=== PATIENT | female | born 1970 | race Two or more races ===

== ENCOUNTER 2025-05-18 17:57 | Inpatient (IN) | payer SELFPAY ==
[~2025-05-18] VITALS: Ht 147.3 cm; Wt 58.5 kg
[2025-05-18 17:59] VITALS: O2SAT 99
[2025-05-18 19:12] LABS: BASOPHILS % 0.7 % (0.0-2.0); EOSINOPHILS % 1.4 % (0.0-5.0); HEMATOCRIT. 41.5 % (36.0-48.0); HEMOGLOBIN. 14.1 g/dL (12.0-16.0); LYMPHOCYTES % 29.7 % (20.0-50.0); MEAN PLATELET VOLUME 8.5 fl (7.4-10.4); MONOCYTES % 6.2 % (2.0-8.0); NEUTROPHILS % 62.0 % (40.0-76.0); PLATELET 328 x1000/uL (130-400); RED BLOOD CELL COUNT 4.86 mill/uL (4.2-5.4); RED CELL DISTRIBUTION WIDTH 13.3 % (11.6-14.6)
[2025-05-18 19:19] LABS: CLARITY URINE CLEAR (CLEAR); COLOR URINE YELLOW (YELLOW); GLUCOSE URINE NEGATIVE (NEGATIVE); KETONES URINE NEGATIVE (NEGATIVE); LEUKOCYTE ESTERASE URINE NEGATIVE (NEGATIVE); NITRITE URINE NEGATIVE (NEGATIVE); OCCULT BLOOD URINE NEGATIVE (NEGATIVE); PH URINE 7.5 (4.5-8.0); PROTEIN URINE NEGATIVE (NEGATIVE); SPECIFIC GRAVITY URINE 1.023 (1.005-1.030); UROBILINOGEN URINE 0.2 E.U./dL (0.2-1.0)
[2025-05-18 19:23] LABS: INR 0.9
[2025-05-18 19:27] LABS: CREATININE 0.8 mg/dL (0.6-1.0)
[2025-05-18 19:28] LABS: HCG SCREEN NEGATIVE; TROPONIN I HIGH SENSITIVITY 7 ng/L (3.0-34); UREA NITROGEN BLOOD 10 mg/dL (9-23)
[2025-05-18 19:29] LABS: ASPARTATE AMINOTRANSFERASE 48 IU/L (<34)
[2025-05-18 19:30] LABS: BILIRUBIN DIRECT 0.2 mg/dL (<=3.0); BILIRUBIN TOTAL 0.8 mg/dL (0.1-1.0); PROTEIN TOTAL 7.8 g/dL (6.0-8.3)
[2025-05-18 19:32] LABS: *AMPHETAMINES SCREEN URINE NEGATIVE (NEGATIVE); *BARBITURATES SCREEN URINE NEGATIVE (NEGATIVE); *BENZODIAZEPINES SCREEN URINE NEGATIVE (NEGATIVE); *COCAINE SCREEN URINE NEGATIVE (NEGATIVE); CANNABINOID URINE SCREEN NEGATIVE (NEGATIVE); ECSTASY MDMA SCREEN URINE NEGATIVE (NEGATIVE); METHADONE URINE SCREEN NEGATIVE (NEGATIVE); OPIATES URINE SCREEN NEGATIVE (NEGATIVE); PHENCYCLIDINE URINE SCREEN NEGATIVE (NEGATIVE)
[2025-05-18] MEDS: ASPIRIN 81MG TABLET PO ONE (20:25)
[2025-05-18] MEDS ORDERED: ACETAMINOPHEN 325MG TABLET PO PRN (20:45)
[2025-05-18] MEDS ORDERED: ONDANSETRON HCL 4MG/2ML INJ IV PRN (20:45)
[2025-05-18] MEDS ORDERED: DOCUSATE SODIUM 100MG CAPSULE PO PRN (20:45)
[2025-05-18] MEDS ORDERED: IPRATROPIUM/ALBUTEROL 0.5-3(2.5)MG/3ML NEB HHN PRN (20:45)
[2025-05-18] MEDS ORDERED: GUAIFENESIN 200MG/10ML SUGAR FREE UDC PO PRN (20:45)
[2025-05-18] MEDS: IOHEXOL-350 100 ML BOTTLE ONE (21:12)
[2025-05-18] MEDS ORDERED: IOHEXOL-350 100 ML BOTTLE ONE (22:00)
[2025-05-18] MEDS: ACETAMINOPHEN 325MG TABLET PO PRN (23:10)
[2025-05-19] VITALS: BP_SYST 105; BP_SYST 132; BP_DIAS 51; BP_DIAS 55; PULSE 61; PULSE 72; RESP 18; RESP 19; TEMP 36.5; TEMP 36.7; TEMP 36.7516; O2SAT 96; O2SAT 99
[2025-05-19 04:00] VITALS: BP 111/54; PULSE 58; RESP 18; TEMP 36.5; O2SAT 100
[2025-05-19 08:00] VITALS: BP 117/57; PULSE 57; RESP 18; TEMP 35.6; O2SAT 99
[2025-05-19 08:26] LABS: BASOPHILS % 0.6 % (0.0-2.0); EOSINOPHILS % 1.9 % (0.0-5.0); HEMATOCRIT. 40.1 % (36.0-48.0); HEMOGLOBIN. 13.5 g/dL (12.0-16.0); LYMPHOCYTES % 40.6 % (20.0-50.0); MEAN PLATELET VOLUME 8.5 fl (7.4-10.4); MONOCYTES % 9.7 % (2.0-8.0); NEUTROPHILS % 47.2 % (40.0-76.0); PLATELET 287 x1000/uL (130-400); RED BLOOD CELL COUNT 4.70 mill/uL (4.2-5.4); RED CELL DISTRIBUTION WIDTH 13.5 % (11.6-14.6)
[2025-05-19 08:44] LABS: CREATININE 0.7 mg/dL (0.6-1.0); UREA NITROGEN BLOOD 11 mg/dL (9-23)
[2025-05-19 12:00] VITALS: BP 120/69; PULSE 69; RESP 18; TEMP 36.2; O2SAT 99
[2025-05-19 16:00] VITALS: BP 110/61; PULSE 74; RESP 18; TEMP 36.2; O2SAT 97
[2025-05-19 20:00] VITALS: BP 115/56; PULSE 65; RESP 18; TEMP 36.2; O2SAT 98
[2025-05-19] MEDS ORDERED: PNEUMOCOCCAL 20-VAL CONJ-DIP CRM 0.5ML IM ONE (21:00)
[2025-05-19] MEDS ORDERED: INFLUENZA VACCINE 05/PF 0.5 ML SYRINGE IM ONE (21:00)
[2025-05-20] VITALS: BP 120/59; PULSE 60; RESP 18; TEMP 36.6; O2SAT 99
[2025-05-20 04:00] VITALS: BP 142/76; PULSE 59; RESP 18; TEMP 36.5; O2SAT 100
[2025-05-20 08:00] VITALS: BP 111/63; PULSE 68; RESP 17; TEMP 36.4; O2SAT 98
[2025-05-20] MEDS: LORAZEPAM 1MG TABLET PO NR (10:24)
[2025-05-20 16:00] VITALS: BP 103/60; PULSE 77; RESP 16; TEMP 37.2; O2SAT 100
[2025-05-20 20:00] VITALS: BP 110/52; PULSE 83; RESP 18; TEMP 36.6; O2SAT 100
[2025-05-21] VITALS: BP 104/58; PULSE 63; RESP 18; TEMP 36.8; O2SAT 100
[2025-05-21 04:00] VITALS: BP 93/46; PULSE 67; RESP 20; TEMP 36.4; O2SAT 98
[2025-05-21 08:00] VITALS: BP 110/60; PULSE 66; RESP 18; TEMP 36.7; O2SAT 99
[2025-05-21 12:00] VITALS: BP 112/66; PULSE 60; RESP 16; TEMP 36.6; O2SAT 98
[2025-05-21 15:20] VITALS: BP 111/60; PULSE 80; RESP 18; TEMP 96.2
== END 2025-05-21 15:10 | disposition home or self-care (01) | DRG 54 ==
LOC: ER 18:05 → 6WST 20:00 → EDBEDREQTM 20:15 → EDBEDREQ 20:15
PROVIDERS: ADMIT Internal Medicine; ATTEND Internal Medicine
PROC: 4A00X4Z Measurement of Central Nervous Electrical Activity, External Approach (ICD-10-PCS; principal; 2025-05-21)
DX: G43.909 Migraine, unspecified, not intractable, without status migrainosus (principal); R56.9 Unspecified convulsions; G45.4 Transient global amnesia
CPT/HCPCS: 36415; 70496; 70498; 70551; 71045; 80048; 80076; 80305; 80320; 81003; 83735; 84484; 84703; 85025; 90686; 90732; 93005; 95816; 99291; A4606; A6449; Q9967; G0480